=== PATIENT | female | born 1960 | race American Indian/Alaskan Native ===

== ENCOUNTER 2019-02-25 08:44 | Outpatient (CLI) | payer OTHER ==
--- NOTE | 2019-02-25 14:57 | Ultrasound Report ---
ULTRASOUND ABDOMEN, COMPLETE INDICATION: R10.84)Generalized abdominal pain/K44.9)Diaphragmatic hernia with. COMPARISON: No relevant prior imaging study available. FINDINGS: Pancreas: No significant abnormality. Abdominal Aorta: No significant abnormality. IVC: No significant abnormality. Liver: The liver is mildly enlarged with increased echotexture consistent with diffuse fatty infiltra tion. No focal liver mass.. Normal hepatopedal blood flow in the main portal vein. Gallbladder: No significant abnormality. Bile ducts: No significant abnormality. Common bile duct measures 2 mm. Kidneys: Right: 13.4 cm in length. No significant abnormality. Left: 13.5 cm in length. No signif icant abnormality. Spleen: No significant abnormality. Free fluid: None. Additional Findings: None. IMPRESSION: Mild hepatomegaly with diffuse fatty infiltration throughout the liver.. Signer Name: Azam Marrero Jr, MD Signed: 02/25/2019 2:52 PM Workstation Name: [id number]
== END 2019-02-25 08:45 | disposition home or self-care (01) ==
LOC: US 08:44
PROVIDERS: ATTEND General Practice
DX: K21.9 Gastro-esophageal reflux disease without esophagitis (principal); K44.9 Diaphragmatic hernia without obstruction or gangrene; E66.3 Overweight; R10.84 Generalized abdominal pain; K76.0 Fatty (change of) liver, not elsewhere classified
CPT/HCPCS: 76700